=== PATIENT | female | born 1970 | race Two or more races ===

== ENCOUNTER 2018-11-17 09:22 | Outpatient (CLI) | payer OTHER | END 2018-11-17 09:33 | disposition home or self-care (01) | LOC: MAMO-SONO 09:22 | DX: Z12.31 Encounter for screening mammogram for malignant neoplasm of breast (principal); N64.4 Mastodynia ==

== ENCOUNTER → 2018-11-17 | Outpatient (CLI) | payer OTHER | END | disposition home or self-care (01) | LOC: NUCLEAR 11:13 | DX: M85.88 Other specified disorders of bone density and structure, other site (principal) ==